=== PATIENT | male | born 1975 | race Caucasian/White ===

== ENCOUNTER 2017-07-10 17:08 | Emergency (ER) | payer OTHER, SELFPAY ==
[2017-07-10 17:10] VITALS: BP 158/105; PULSE 95; RESP 20; TEMP 36.9; O2SAT 97; BMI 47.6
--- NOTE | 2017-07-10 17:30 | RAD_ITS ---
STUDY: X-RAY CHEST REASON FOR EXAM: Male, 41 years old. Cough. TECHNIQUE: PA and lateral views of the chest. COMPARISON: None. FINDINGS: The lungs are clear and expanded. There is no demonstrated pleural abnormality. Normal size heart. Normal mediastinum and james. Normal visualized pulmonary arteries. Normal visualized aortic arch and descending thoracic aorta. There are diffuse degenerative changes of the visualized thoracic spine. Normal visualized ribs, clavicles, and shoulders. There is no demonstrated abnormality of the visualized soft tissue structures of the upper abdomen. RAD/Chest PA and Lateral IMPRESSION: No acute cardiopulmonary process. Electronically Signed: Radha Chavez MD at 19:03 EST Tel , Service support ,
[2017-07-10] MEDS: Ipratropium/Albuterol Sulfate 3 ML AMPUL.NEB INHALATION (17:41)
[2017-07-10 17:42] VITALS: PULSE 98; RESP 20
--- NOTE | 2017-07-10 17:42 | EKG12_ITS ---
Test Reason : CP Blood Pressure : / mmHG Vent. Rate : 094 BPM Atrial Rate : 094 BPM P-R Int : 154 ms QRS Dur : 078 ms QT Int : 320 ms P-R-T Axes : 058 069 044 degrees QTc Int : 400 ms Normal sinus rhythm Normal ECG Confirmed by YANG CHOI, ALVARADO ([id number]), editor producer JOHN YANG ([id number]) on 07/13/2017 3:55:38 PM Referred By: NORMAN Confirmed By:ALVARADO SORIA MD
[2017-07-10 18:02] VITALS: O2SAT 97
--- NOTE | 2017-07-10 18:16 | ED.VISSUMM ---
- ER Visit Summary Date of Service: 07/10/17 Chief Complaint: Cough History of Present Illness: The patient is a 41 M who has had a cough. He has had this cough for 7 weeks. He states is not getting any better. The cough is not productive. He states that his lungs are burning. He has been on Proventil and Flovent at home. He has been on amoxicillin as well as Tessalon Perles. He is not getting any better. At one point he did have influenza but is now better from that perspective. He has not had a fever. No history of any lung problems. Physical Examination: Vital signs reviewed. HEENT exam unremarkable. Heart is regular rate and rhythm without murmurs. Lungs are clear to auscultation. Abdomen is soft and nontender. Extremities reveal no edema. Skin exam normal. Neurologic exam normal. Test Results: Chest x-ray negative Emergency Department Course and Treatment: Patient was given 1 DuoNeb treatment and feels somewhat improved Treatment Plan: I will discharge him home with a Medrol Dosepak to see if this will help with his cough. He will need to follow-up with his PCP for further testing if it persists Disposition: Discharge Impression: Cough This note was generated with [employer] dictation software. It may contain incorrect words, spelling, and punctuation that were not noted in review of the chart prior to signing ED Disposition - Plan for ED Patient: Chief Complaint: Cough Referrals: Stefano Thapa MD [Primary Care Provider] -
--- NOTE | 2017-07-10 19:09 | ED.DEP ---
ED Disposition - Plan for ED Patient: Disposition: Home or Assisted Living Chief Complaint: Cough Instructions: ED Upper Resp Infec No Abx Tx Prescriptions: MethylPREDNISolone DosePak [Medrol DosePak] 4 mg PO UD #1 box Referrals: Stefano Thapa MD [Primary Care Provider] -
[2017-07-10 19:22] VITALS: BP 155/98; PULSE 89; RESP 18; TEMP 36.2; O2SAT 97
== END 2017-07-10 19:23 | disposition home or self-care (01) ==
PROVIDERS: Emergency Provider Emergency Medicine; Family Provider Family Medicine; PCP Family Medicine
DX: R05 Cough (principal); E11.9 Type 2 diabetes mellitus without complications; I10 Essential (primary) hypertension; Z79.84 Long term (current) use of oral hypoglycemic drugs; Z79.899 Other long term (current) drug therapy
CPT/HCPCS: 71046; 93005; 94640; 99282

== ENCOUNTER → 2020-10-28 10:03 | Outpatient (CLI) | payer OTHER, SELFPAY ==
--- NOTE | 2020-10-28 10:05 | RAD_ITS ---
STUDY: X-RAY CHEST REASON FOR EXAM: Male, 45 years old. COUGH TECHNIQUE: 2 views COMPARISON: 07/10/2017. FINDINGS: The lungs are clear and expanded. There is no demonstrated pleural abnormality. Normal size heart. Normal mediastinum and james. Normal visualized pulmonary arteries. Normal visualized aortic arch and descending thoracic aorta. Normal visualized thoracic spine. Normal visualized ribs, clavicles, and shoulders. There is no demonstrated abnormality of the visualized soft tissue structures of the upper abdomen. RAD/Chest PA and Lateral IMPRESSION: Normal x-ray examination of the chest unchanged since July 2017. Electronically Signed: Kai Nixon, at 14:29 EDT Tel , Service support ,
== END ==
PROVIDERS: PCP Family Medicine; Referring Provider Internal Medicine Pulmonary Disease; Visit Provider Internal Medicine Pulmonary Disease
DX: R05 Cough (principal)
CPT/HCPCS: 71046

== ENCOUNTER 2021-12-02 16:42 | Emergency (ER) | payer OTHER, SELFPAY ==
[2021-12-02 16:43] VITALS: BP 138/101; PULSE 116; RESP 19; TEMP 36.6; O2SAT 97; BMI 48.4
--- NOTE | 2021-12-02 17:28 | ED.VIS.LOWEX ---
HPI History of Present Illness HPI Narrative: Patient presents with pain in his left calf that has been getting worse for the past week. Patient states it began rather suddenly. Patient states it has been constant. Patient describes the pain as a cramping. Patient states nothing makes it better and nothing makes it worse. Patient denies any trauma or injury. Patient does admit to some tingling in his toes. Patient denies any weakness. Patient states he went to an urgent care and was told to come to the emergency department for possible DVT. Chief Complaint: Lower Extremity Injury Informant: patient Onset/Context/Timing Onset: Weeks (1) Context: Sudden Onset Timing: Continuous Quality of Pain: - (Cramping) Location: Left calf Worsened by: Nothing Relieved by: Nothing Associated Symptoms Associated Symptoms: Positive for Parasthesia; Negative for Weakness or Loss of Funtion [facility] Medical History (Updated 12/02/21 @ 19:[address] Brian Mtz, DO) Diabetes mellitus Hypertension Medical History no medical history Home Medications aripiprazole 5 mg tablet 5 mg PO DAILY 07/10/17 [History Last Taken Unknown] cholecalciferol (vitamin D3) 250 mcg (10,000 unit) tablet 10,000 unit PO DAILY 07/10/17 [History Last Taken Unknown] clonazepam 1 mg tablet 1 mg PO QHS 07/10/17 [History Last Taken Unknown] melatonin ER 10 mg-pyridoxine HCl (B6) 10 mg tab, immed-extend release 1 ea PO DAILY 07/10/17 [History Last Taken Unknown] metformin 500 mg 24 hr tablet,extended release 500 mg PO DAILY 07/10/17 [History Last Taken Unknown] trazodone 150 mg tablet 150 mg PO QHS 07/10/17 [History Last Taken Unknown] venlafaxine 75 mg capsule,extended release 24 hr (Effexor XR) 75 mg PO DAILY 07/10/17 [History Last Taken Unknown] losartan 25 mg tablet 25 mg PO DAILY 10/13/21 [History Last Taken Unknown] meloxicam 15 mg tablet 15 mg PO PRN PRN KNEE PAIN 10/13/21 [History Last Taken Unknown] apixaban 5 mg tablet (Eliquis) 5 mg PO BID #74 tabs 12/02/21 [Rx Last Taken Unknown] venlafaxine 150 mg capsule,extended release 24 hr 300 mg PO DAILY 12/02/21 [History Last Taken Unknown] Allergy/AdvReac Type Severity Reaction Status Date / Time No Known Allergies Allergy Verified 12/02/21 16:46 Family History no significant family his Surgical History no surgical history no surgical history Social History Smoking Status: Never smoker ROS ROS ED Constitutional Constitutional ED: Denies chills or fever(s) Eyes Eyes: Denies blurry vision or change in vision ENT ENT ED: Denies rhinorrhea or sore throat Cardiovascular Cardiovascular: Denies chest pain or palpitations Respiratory/Chest Respiratory/Chest: Denies cough or dyspnea Gastrointestinal Gastrointestinal: Denies nausea or vomiting Genitourinary Genitourinary ED: Denies dysuria or hematuria Musculoskeletal Musculoskeletal: Denies back pain or neck pain Integumentary Denies abscess or rash Neurologic Neurologic: Denies headache(s) or weakness Allergic/Immunologic Allergic/Immunologic ED: Denies mouth swelling or urticaria EXAM Physical Exam Const Vital Signs: 12/02/21 16:43 12/02/21 19:17 Temperature 97.9 F Temperature Source Temporal Pulse Rate 116 H 96 Respiratory Rate 19 H 18 Blood Pressure 138/101 H 153/98 H Blood Pressure Mean 113 Pulse Ox 97 94 Oxygen Delivery Method Room Air Positive well nourished, well developed and obese General Appearance ED: well developed and NAD Nutritional Appearance: obese HEENT Reports moist mucous membranes Neck full ROM and supple Extremity Extremity Narrative: There is tenderness to palpation over the left calf. There is no edema. There is no ecchymosis. There is no bony crepitance or step-off. There is no deformity. There is good range of motion of the left knee and left ankle. There is no pain with dorsiflexion of the ankle. Pedal pulses are equal bilaterally. Sensation was intact to light touch in all digits. Capillary refill was less than 2 seconds in all digits. Neuro oriented x3, CN's II-XII intact bilaterally, moves all extremities and no sensory deficits noted Sensorium / Orientation: alert Motor Exam: strength 5/5 throughout Psych mental status grossly normal MDM MDM MDM Narrative Medical decision making narrative: Venous duplex of the left lower extremity was obtained. There is a DVT noted in the superficial femoral vein, popliteal vein, posterior tibial vein, and peroneal vein. Patient was given a first dose of Eliquis here. Patient was advised of his findings. Patient was given a prescription for Eliquis. Patient was instructed to follow-up with his primary care physician in 3 to 5 days. Patient understood and was agreeable with the plan. All questions were answered. Radiography Diagnostic Testing: Clinical Impression(s) from Imaging Studies Venous Duplex 12/02/21 17:30 IMPRESSION: Deep venous thrombosis of the left leg. Electronically Signed: Qasim Wells MD at 20:12 EDT Reading Location ID and State: [facility] [place] , Service support , ADDENDUM: 12/02/212055 IMPRESSION: Deep venous thrombosis of the left leg. N.B. : Josue Hayes RN, confirmed on 12/02/2021 20:49:57 (ET) that the healthcare facility has received the radiology report. Electronically Signed: Qasim Wells MD at 20:12 EDT Reading Location ID and State: [facility] [place] , Service support , Discharge Plan Triage Chief Complaint: Lower Extremity Injury ED Provider: Brian Mtz Dx/Rx/DC Orders Clinical Impression: Acute deep vein thrombosis (DVT) of left lower extremity Instructions: ED Deep Vein Thrombosis (DVT) Prescriptions: New Eliquis 5 mg tablet 5 mg PO BID Qty: 74 0RF Rx Instructions: 10 mg twice a day for the first week. Then 5 mg twice a day. No Action losartan 25 mg tablet 25 mg PO DAILY Label Comments: TAKE 1 TABLET BY MOUTH ONCE DAILY meloxicam 15 mg tablet 15 mg PO PRN PRN (Reason: KNEE PAIN) Label Comments: TAKE 1 TABLET BY MOUTH ONCE DAILY WITH FOOD venlafaxine [Effexor XR] 75 MG capsule,extended release 24hr 75 mg PO DAILY aripiprazole 5 MG tablet 5 mg PO DAILY metformin 500 MG tablet,ER aditya.retention 24 hr 500 mg PO DAILY cholecalciferol (vitamin D3) 10,000 UNIT tablet 10,000 unit PO DAILY clonazepam 1 MG tablet 1 mg PO QHS trazodone 150 MG tablet 150 mg PO QHS melatonin-pyridoxine HCl (B6) 1 EACH tablet, IR and ER, biphasic 1 ea PO DAILY venlafaxine 150 mg Capsule,Extended Release 24hr 300 mg PO DAILY Primary Care Provider: Stefano Thapa Referrals: Stefano Thapa MD [Primary Care Provider] - 3-5 Days Disposition Disposition: Home, Self Care Discharge Date/Time: 12/02/21 19:19
--- NOTE | 2021-12-02 17:30 | US_ITS ---
ACR Level 3 findings have been noted. An addendum which confirms receipt of the report will follow. STUDY: VENOUS DOPPLER ULTRASOUND - LEFT LOWER EXTREMITY REASON FOR EXAM: Male, 46 years old. -- PAIN TECHNIQUE: Ultrasound evaluation of the deep vein system to include spears-scale imaging and compression was performed. Spears-scale imaging and Doppler sonographic evaluation, including duplex spectral analysis and qualitative color flow sonography, was performed. COMPARISON: None. FINDINGS: Common Femoral Vein: Normal compression, spontaneity and augmentation. Normal color Doppler. Common Femoral Vein/Greater Saphenous Junction: Normal compression, spontaneity and augmentation. Normal color Doppler. Deep Femoral Vein: Normal compression, spontaneity and augmentation. Normal color Doppler. Femoral Proximal: Normal compression, spontaneity and augmentation. Normal color Doppler. Femoral Middle: Incomplete compression. Echogenic material within the lumen. Diminished flow. Femoral Distal: Incomplete compression. Echogenic material within the lumen. Diminished flow. Popliteal Vein: Incomplete compression. Echogenic material within the lumen. Diminished flow. Posterior Tibial Vein: Incomplete compression. Echogenic material within the lumen. Diminished flow. Peroneal Vein: Incomplete compression. Echogenic material within the lumen. Diminished flow. The above findings are consistent with an acute thrombosis. US/Venous Duplex Imag/Limited/Uni IMPRESSION: Deep venous thrombosis of the left leg. Electronically Signed: Qasim Wells MD at 20:12 EDT ,
[2021-12-02] MEDS: APIXABAN 5 MG TABLET 10 MG PO (18:39)
[2021-12-02 19:17] VITALS: BP 153/98; PULSE 96; RESP 18; O2SAT 94
== END 2021-12-02 19:19 | disposition home or self-care (01) ==
PROVIDERS: Emergency Provider Emergency Medicine; PCP Family Medicine; Visit Provider Emergency Medicine
DX: I82.402 Acute embolism and thrombosis of unspecified deep veins of left lower extremity (principal); Z68.42 Body mass index [BMI] 45.0-49.9, adult; E11.9 Type 2 diabetes mellitus without complications; I10 Essential (primary) hypertension; Z79.899 Other long term (current) drug therapy; Z79.84 Long term (current) use of oral hypoglycemic drugs; E66.9 Obesity, unspecified
CPT/HCPCS: 93971; 99283

== ENCOUNTER 2021-12-12 20:33 | Emergency (ER) | payer OTHER, SELFPAY ==
[2021-12-12 20:34] VITALS: BP 133/106; PULSE 98; RESP 16; TEMP 36.4; O2SAT 99; BMI 49.0
[2021-12-12 20:44] VITALS: BP 167/96
--- NOTE | 2021-12-12 20:57 | US_ITS ---
INDICATION: LT KNOWN DVT - LAST WEEK, PT ON BLOOD THINNERS - PT THINKS DVT HAS GOTTEN WORSE EXAMINATION: Ultrasound US Venous Duplex LE Unilat / Limited TECHNIQUE: Spears scale, pulse wave, and color flow Doppler imaging was performed of the lower extremity venous system. The left greater saphenous, common femoral, femoral, and popliteal veins were interrogated. Left posterior tibial and peroneal veins also interrogated. Right common femoral vein assessed for comparison. COMPARISON: 12/02/2021 venous ultrasound. FINDINGS: Persistent incompressibility and blunted waveforms of the mid and distal superficial femoral vein and proximal posterior tibial and peroneal veins with associated low-level internal echoes in the posterior tibial and peroneal veins consistent with persistent deep venous thrombosis. The common femoral and proximal superficial femoral and popliteal veins are within normal limits. Contralateral right common femoral vein is normal. US/Venous Duplex Imag/Limited/Uni IMPRESSION: Persistent deep venous thrombosis as described 12/02/2021. No new venous thrombosis. Electronically Signed: Francisco Dyson DO at 22:07 EDT ,
--- NOTE | 2021-12-12 20:57 | ED.VIS.LOWEX ---
HPI History of Present Illness Chief Complaint: Lower Extremity Injury Informant: patient Narrative Narrative: 46-year-old male states that on 02 December 2021 he was diagnosed with DVT of the left leg and started on Eliquis. He notes he has not missed any doses. He states that he has now developed burning on the medial aspect of his thigh and the lateral aspect of his leg. He is concerned that his blood clots are worsening. He is not sure if his swelling is worse on that side. [facility] Medical History Diabetes mellitus Hypertension Home Medications clonazepam 1 mg tablet 1 mg PO QHS 07/10/17 [History Last Taken Unknown] metformin 500 mg 24 hr tablet,extended release 500 mg PO DAILY 07/10/17 [History Last Taken Unknown] venlafaxine 75 mg capsule,extended release 24 hr (Effexor XR) 75 mg PO DAILY 07/10/17 [History Last Taken Unknown] losartan 25 mg tablet 25 mg PO DAILY 10/13/21 [History Last Taken Unknown] meloxicam 15 mg tablet 15 mg PO PRN PRN KNEE PAIN 10/13/21 [History Last Taken Unknown] apixaban 5 mg tablet (Eliquis) 5 mg PO BID #74 tabs 12/02/21 [Rx Last Taken Unknown] venlafaxine 150 mg capsule,extended release 24 hr 300 mg PO DAILY 12/02/21 [History Last Taken Unknown] aripiprazole 15 mg tablet 15 mg PO DAILY 12/11/21 [History Last Taken Unknown] calcium carbonate 80 mg-magnesium carbonate 115 mg tablet 1 tab PO DAILY 12/11/21 [History Last Taken Unknown] cholecalciferol (vitamin D3) 125 mcg (5,000 unit) capsule 125 mcg PO DAILY 12/11/21 [History Last Taken Unknown] melatonin 5 mg capsule 5 mg PO DAILY 12/11/21 [History Last Taken Unknown] trazodone 100 mg tablet 100 mg PO DAILY 12/11/21 [History Last Taken Unknown] Allergy/AdvReac Type Severity Reaction Status Date / Time No Known Allergies Allergy Verified 12/12/21 20:34 Social History (Updated 12/12/21 @ 20:[address] Sae Vanegas DO) Smoking Status: Never smoker substance use type: does not use ROS ROS ED Constitutional Constitutional ED: Denies chills or weight loss Eyes Eyes: Denies change in vision or diplopia ENT ENT ED: Denies ear pain, rhinorrhea or sore throat Cardiovascular Cardiovascular: Denies chest pain, orthopnea, palpitations or racing heartbeat Respiratory/Chest Respiratory/Chest: Denies cough, dyspnea or orthopnea Gastrointestinal Gastrointestinal: Denies abdominal pain, diarrhea, nausea or vomiting Genitourinary Genitourinary ED: Denies dysuria, hematuria or urinary frequency Musculoskeletal Musculoskeletal: Reports other Details: left leg pain ; Denies arthralgias or myalgias Integumentary Denies abscess or rash Neurologic Neurologic: Denies headache(s) or weakness Psychiatric Psychiatric: Denies anxiety, depression, suicidal ideation or suicidal thoughts Endocrine Endocrinology: Denies polydipsia, polyphagia or polyuria Allergic/Immunologic Allergic/Immunologic ED: Denies mouth swelling, tongue swelling or urticaria EXAM Physical Exam Const Vital Signs: 12/12/21 20:34 12/12/21 20:44 Temperature 97.6 F L Temperature Source Temporal Pulse Rate 98 Respiratory Rate 16 Blood Pressure 133/106 H 167/96 H Blood Pressure Mean 115 119 Pulse Ox 99 Oxygen Delivery Method Room Air Positive well nourished and well developed General Appearance ED: well developed HEENT Reports normocephalic, head/scalp atraumatic and moist mucous membranes Eyes PERRL and EOMs intact bilaterally Neck no lymphadenopathy, supple and no JVD Resp normal respiratory effort and clear to auscultation bilaterally Cardio regular rate, regular rhythm and no murmurs GI normal to inspection, nondistended, normoactive bowel sounds and non-tender Palpation: soft Back/Spine no CVA tenderness and normal ROM Extremity Extremity Narrative: I do not appreciate significant tenderness to palpation or swelling between the 2 sides. I do not palpate any cords or see any superficial thrombophlebitis. Skin appears of normal color with good capillary refill. General Extremety ED: Negative for edema General Extremity: Negative for edema Neuro oriented x3 and CN's II-XII intact bilaterally Sensorium / Orientation: alert Motor Exam: strength 5/5 throughout Psych mental status grossly normal Mood & Affect: Negative for depressed or tearful Skin no rashes or lesions noted and no wounds MDM MDM MDM Narrative Medical decision making narrative: Duplex ultrasound was obtained and actually show significant improvement as compared to the duplex from 02 December. Patient does not require any advanced pain medicine at home. He has an appointment on Wednesday with his primary care provider. Patient to return if worsening Discharge Plan Triage Chief Complaint: Lower Extremity Injury ED Provider: Sae Vanegas Dx/Rx/DC Orders Clinical Impression: Acute pain of left lower extremity, Acute deep vein thrombosis (DVT) of left lower extremity, Anticoagulated Instructions: DVT Complications Prescriptions: No Action aripiprazole 15 mg tablet 15 mg PO DAILY Label Comments: TAKE 1 TABLET BY MOUTH ONCE DAILY cholecalciferol (vitamin D3) 125 mcg (5,000 unit) capsule 125 mcg PO DAILY calcium carb-magnesium carb 80-115 mg tablet 1 tab PO DAILY trazodone 100 mg tablet 100 mg PO DAILY Label Comments: TAKE 1 TABLET BY MOUTH ONCE DAILY AT BEDTIME melatonin 5 mg capsule 5 mg PO DAILY losartan 25 mg tablet 25 mg PO DAILY Label Comments: TAKE 1 TABLET BY MOUTH ONCE DAILY meloxicam 15 mg tablet 15 mg PO PRN PRN (Reason: KNEE PAIN) Label Comments: TAKE 1 TABLET BY MOUTH ONCE DAILY WITH FOOD venlafaxine [Effexor XR] 75 MG capsule,extended release 24hr 75 mg PO DAILY metformin 500 MG tablet,ER aditya.retention 24 hr 500 mg PO DAILY clonazepam 1 MG tablet 1 mg PO QHS venlafaxine 150 mg Capsule,Extended Release 24hr 300 mg PO DAILY Eliquis 5 mg tablet 5 mg PO BID Qty: 74 0RF Rx Instructions: 10 mg twice a day for the first week. Then 5 mg twice a day. Primary Care Provider: Stefano Thapa Referrals: Stefano Thapa MD [Primary Care Provider] - 1-2 Weeks Disposition Disposition: Home, Self Care
[2021-12-12] MEDS: oxyCODONE 5 MG Tablet 10 MG PO (21:42)
[2021-12-12 21:46] VITALS: RESP 18
== END 2021-12-12 21:58 | disposition home or self-care (01) ==
PROVIDERS: Emergency Provider Emergency Medicine; PCP Family Medicine; Visit Provider Emergency Medicine
DX: I82.402 Acute embolism and thrombosis of unspecified deep veins of left lower extremity (principal); E11.9 Type 2 diabetes mellitus without complications; I10 Essential (primary) hypertension; Z79.899 Other long term (current) drug therapy; Z86.718 Personal history of other venous thrombosis and embolism; Z79.01 Long term (current) use of anticoagulants; Z79.84 Long term (current) use of oral hypoglycemic drugs
CPT/HCPCS: 93971; 99283

== ENCOUNTER → 2022-05-07 | Outpatient (CLI) | payer SELFPAY, OTHER ==
--- NOTE | 2022-05-07 07:51 | VDLE_ITS ---
Reason For Study: DVT Procedure LEFT This is a venous duplex using B-mode, color GSV is normal. flow and spectral Doppler. CFV is compressible, spontaneous, phasic, Exam performed in department. competent, and demonstrates normal A preliminary report was called and/or faxed augmentation. to [facility]. FV is compressible, spontaneous, phasic, competent and demonstrates normal augmentation. POP V is compressible, spontaneous, phasic, competent and demonstrates normal augmentation. T/P Trunk is compressible. PTV is compressible. LT PerV is compressible. VL/Venous Duplex US, Unilateral Interpretation Summary There is no evidence of left lower extremity deep vein thrombosis. Left great s aphenous vein appears patent and compressible segmentally. Ordering Physician: Stefano Thapa Referring Physician: Stefano Thapa Performed By: Latonya Dykes RVT
== END | disposition home or self-care (01) ==
PROVIDERS: PCP Family Medicine; Referring Provider Family Medicine; Visit Provider Family Medicine
DX: I82.4Z2 Acute embolism and thrombosis of unspecified deep veins of left distal lower extremity (principal)
CPT/HCPCS: 93971

== ENCOUNTER → 2023-01-25 | Outpatient (CLI) | payer OTHER, SELFPAY ==
--- NOTE | 2023-01-25 07:58 | RAD_ITS ---
STUDY: X-RAY - ESOPHAGUS (BARIUM SWALLOW) WITH FLUOROSCOPY REASON FOR EXAM: Male, 47 years old. GLOBUS SENSATION TECHNIQUE: 16 view(s) of the esophagus were obtained following swallowing of barium. FLUOROSCOPY TIME (if supplied): (36 seconds) minutes/seconds. 61.4 mGy COMPARISON: None. FINDINGS: There is no demonstrated esophageal foreign body. There is no demonstrated stricture or mucosal abnormality. Normal gastroesophageal junction, without a demonstrated hiatal hernia. The patient ingested a 12 mm tablet of barium without any difficulty. Normal visualized aortic arch and descending thoracic aorta. Normal visualized pulmonary parenchyma. Normal visualized osseous structures of the thorax. RAD/Esophagus Dual Contrast IMPRESSION: Normal plain film x-ray examination (barium swallow) of the esophagus. Electronically Signed: Conrado Bailon MD at 11:02 EDT ,
== END | disposition home or self-care (01) ==
LOC: RAD 07:25
PROVIDERS: PCP Family Medicine; Referring Provider Family Medicine; Visit Provider Family Medicine
DX: R09.89 Other specified symptoms and signs involving the circulatory and respiratory systems (principal)
CPT/HCPCS: 74221

== ENCOUNTER 2023-08-12 11:20 | Emergency (ER) | payer OTHER, SELFPAY ==
[2023-08-12 11:20] VITALS: BP 134/84; PULSE 92; RESP 14; TEMP 36.3; O2SAT 95; BMI 49.8
--- NOTE | 2023-08-12 11:27 | ED.RN ---
did not do a complete nih in triage
--- NOTE | 2023-08-12 11:45 | EDS_ITS ---
HPI History of Present Illness Chief Complaint: Headache Informant: patient Onset/Context/Timing Onset: Today Narrative Narrative: Patient presents with headache on the right side between his eyes and his ear. He states pain is mild to moderate and started this morning. He reportedly called his PCPs office who wanted him to come in for a CT scan. He denies any recent head injury. Patient states he did have a little bit of a runny nose yesterday but that is resolved today. No fever or chills. He reportedly had a biswas spot moving around in his right eye yesterday that is resolved today. Patient has Eliquis listed on his medication list, however states he no longer takes this. He was on this for a history of DVT in the past. [facility] Medical History Arthritis Carpal tunnel syndrome Diabetes mellitus Headache Hemorrhoids History of back problems Hormone deficiency Hypertension Irritable bowel syndrome (IBS) MDD (major depressive disorder) Migraines Vitamin deficiency Home Medications metformin 500 mg 24 hr tablet,extended release (gastric retention) 500 mg PO DAILY 07/10/17 [History Last Taken Unknown] losartan 25 mg tablet 25 mg PO DAILY 10/13/21 [History Last Taken Unknown] apixaban 5 mg tablet (Eliquis) 5 mg PO BID #74 tabs 12/02/21 [Rx Last Taken Unknown] calcium carbonate 80 mg-magnesium carbonate 115 mg tablet 1 tab PO DAILY 12/11/21 [History Last Taken Unknown] cholecalciferol (vitamin D3) 125 mcg (5,000 unit) capsule 125 mcg PO DAILY 12/11/21 [History Last Taken Unknown] melatonin 5 mg capsule 5 mg PO DAILY 12/11/21 [History Last Taken Unknown] benztropine 0.5 mg tablet 0.5 mg PO .COMPLEX #60 tabs 12/23/21 [Rx Last Taken Unknown] meclizine 25 mg tablet 25 mg PO TID PRN dizziness #90 tabs 12/23/21 [Rx Last Taken Unknown] aripiprazole 10 mg tablet 10 mg PO DAILY 90 days #90 tabs 05/25/23 [Rx Last Taken Unknown] trazodone 100 mg tablet 100 mg PO DAILY #90 tabs 05/25/23 [Rx Last Taken Unknown] trihexyphenidyl 2 mg tablet 1 - 2 mg (0.5 - 1 x 2 mg) PO .prn tremor #30 tabs 05/25/23 [Rx Last Taken Unknown] clonazepam 1 mg tablet 1 mg PO QHS #30 tabs 06/16/23 [Rx Last Taken Unknown] venlafaxine 150 mg capsule,extended release 24 hr 300 mg (2 x 150 mg) PO DAILY 90 days #180 caps 06/16/23 [Rx Last Taken Unknown] venlafaxine 75 mg capsule,extended release 24 hr (Effexor XR) 75 mg PO DAILY 90 days #90 caps 06/17/23 [Rx Last Taken Unknown] Allergy/AdvReac Type Severity Reaction Status Date / Time No Known Allergies Allergy Verified 08/12/23 11:21 Family History Grandfather Anxiety Diabetes Mother Hypertension Surgical History History of carpal tunnel surgery Social History Smoking Status: Never smoker Tobacco: How many years used: 5 second hand exposure: No details: occasionally substance use type: does not use sherman/presybeterian: Church ROS ROS ED Constitutional Constitutional ED: Denies chills or fever(s) Eyes Eyes: Denies discharge from eye(s) ENT ENT ED: Denies discharge from eye(s), rhinorrhea or sore throat Cardiovascular Cardiovascular: Denies chest pain or palpitations Respiratory/Chest Respiratory/Chest: Denies cough or dyspnea Gastrointestinal Gastrointestinal: Denies abdominal pain, nausea or vomiting Genitourinary Genitourinary ED: Denies dysuria Musculoskeletal Musculoskeletal: Denies back pain or extremity pain Integumentary Denies Abrasions or rash Neurologic Neurologic: Reports headache(s); Denies weakness Psychiatric Psychiatric: Denies anxiety or depression Allergic/Immunologic Allergic/Immunologic ED: Denies lip swelling or urticaria EXAM Physical Exam Const Vital Signs: 08/12/23 11:20 08/12/23 13:20 Temperature 97.3 F L Temperature Source Temporal Pulse Rate 92 78 Respiratory Rate 14 16 Blood Pressure 134/84 H 127/70 H Blood Pressure Mean 100 89 Pulse Ox 95 97 Oxygen Delivery Method Room Air Room Air Positive well nourished, well developed and obese General Appearance ED: well developed Nutritional Appearance: obese HEENT Reports moist mucous membranes Eyes EOMs intact bilaterally Neck no meningeal signs Resp normal respiratory effort and clear to auscultation bilaterally Cardio regular rate and regular rhythm GI non-tender Palpation: soft Extremity normal to inspection General Extremety ED: Yes edema General Extremity: edema Neuro oriented x3 and no sensory deficits noted Sensorium / Orientation: awake and alert Motor Exam: strength 5/5 throughout Psych mental status grossly normal Skin Lesions: no lesions Rashes: no rashes MDM MDM MDM Narrative Medical decision making narrative: IV line established. Patient given IV fluids, Toradol, Reglan, and Benadryl. CT scan of the head will be obtained to evaluate for any acute intracranial injury. Radiography Diagnostic Testing: Clinical Impression(s) from Imaging Studies Brain CT 08/12/23 12:10 IMPRESSION: Focal atrophy in the region of the sylvian fissures bilaterally suggestive of old ischemic insult. Electronically Signed: Conrado Bailon MD at 12:22 EDT , Treatment and Re-Evaluation Narrative: CT scan of the head reveals focal atrophy in the regions of the sylvian fissures bilaterally suggestive of old ischemic insult. No acute findings noted. On repeat evaluation patient resting comfortably. He states he feels very sleepy but his headache is improved. Test results were discussed with patient and at bedside. He will be discharged to home and will follow up with his primary care physician. Discharge Plan Triage Chief Complaint: Headache ED Provider: Natasha Montes Dx/Rx/DC Orders Clinical Impression: Headache Instructions: ED Headache Unspecified Prescriptions: No Action cholecalciferol (vitamin D3) 125 mcg (5,000 unit) capsule 125 mcg PO DAILY calcium carb-magnesium carb 80-115 mg tablet 1 tab PO DAILY melatonin 5 mg capsule 5 mg PO DAILY benztropine 0.5 mg tablet 0.5 mg PO .COMPLEX Qty: 60 4RF Rx Instructions: 1 tablet orally daily for one week then 1 tablet BID thereafter meclizine 25 mg tablet 25 mg PO TID PRN (Reason: dizziness) Qty: 90 4RF losartan 25 mg tablet 25 mg PO DAILY Patient Comments: TAKE 1 TABLET BY MOUTH ONCE DAILY venlafaxine 150 mg capsule,extended release 24hr 300 mg PO DAILY 90 Days Qty: 180 1RF clonazepam 1 mg tablet 1 mg PO QHS Qty: 30 2RF metformin 500 MG tablet,ER aditya.retention 24 hr 500 mg PO DAILY Eliquis 5 mg tablet 5 mg PO BID Qty: 74 0RF Rx Instructions: 10 mg twice a day for the first week. Then 5 mg twice a day. aripiprazole 10 mg tablet 10 mg PO DAILY 90 Days Qty: 90 1RF trazodone 100 mg tablet 100 mg PO DAILY Qty: 90 1RF trihexyphenidyl 2 mg tablet 1 - 2 mg PO .prn Qty: 30 2RF venlafaxine [Effexor XR] 75 mg capsule,extended release 24hr 75 mg PO DAILY 90 Days Qty: 90 1RF Primary Care Provider: Stefano Thapa Referrals: Stefano Thapa MD [Primary Care Provider] - As Needed Disposition Disposition: Home, Self Care
[2023-08-12] MEDS: DiphenhydrAMINE 50 MG/ML Syringe 25 MG IV (11:53)
[2023-08-12] MEDS: Metoclopramide 10 MG/2 ML Vial 5 MG IV (11:53)
[2023-08-12] MEDS: 0.9% Normal Saline (500mL Bag) 500 ML 1000 ML IV (11:54)
[2023-08-12] MEDS: Ketorolac 15 MG/ML Vial IV (11:54)
--- NOTE | 2023-08-12 12:10 | CT_ITS ---
STUDY: CT BRAIN WITHOUT CONTRAST REASON FOR EXAM: Male, 47 years old. Headache RADIATION DOSAGE (If Supplied By Facility): CTDIvol = ( 44.99 ) mGy, DLP = ( 880.47 ) mGycm TECHNIQUE: Transaxial CT imaging of the brain was performed without administration of intravenous contrast material. Individualized dose optimization techniques were used for this CT. COMPARISON: No relevant priors. FINDINGS: Normal soft tissue structures. Normal calvarium. Normal size ventricles and extra-axial spaces for the patient''s age. Focal atrophy in the region of the sylvian fissures bilaterally suggestive of possible old ischemic insult. Normal basal ganglia and thalami. Normal brainstem. Normal cerebellum. There is no intracranial hemorrhage. There are no findings of an acute ischemic infarction. Minimal mucosal thickening along the lateral inferior aspect of the left maxillary sinus. CT/Brain/Head without Contrast IMPRESSION: Focal atrophy in the region of the sylvian fissures bilaterally suggestive of old ischemic insult. Electronically Signed: Conrado Bailon MD at 12:22 EDT ,
[2023-08-12 13:20] VITALS: BP 127/70; PULSE 78; RESP 16; O2SAT 97
[2023-08-12 13:40] VITALS: BP 121/60; PULSE 68; RESP 16; TEMP 36.3; O2SAT 99
== END 2023-08-12 13:40 | disposition home or self-care (01) ==
PROVIDERS: Emergency Provider Emergency Medicine; PCP Family Medicine; Visit Provider Emergency Medicine
DX: R51.9 Headache, unspecified (principal); E11.9 Type 2 diabetes mellitus without complications; I10 Essential (primary) hypertension; Z79.84 Long term (current) use of oral hypoglycemic drugs; Z79.899 Other long term (current) drug therapy; F32.9 Major depressive disorder, single episode, unspecified
CPT/HCPCS: 70450; 96361; 96374; 96375; 99283; J7040

== ENCOUNTER 2024-06-29 13:02 | Emergency (ER) | payer OTHER, SELFPAY ==
[2024-06-29 13:03] VITALS: BP 133/89; PULSE 115; RESP 20; TEMP 36.4; O2SAT 95; BMI 51.9
--- NOTE | 2024-06-29 15:29 | VDLE_ITS ---
Reason For Study Reason For Study: Left leg swelling RIGHT LEFT CFV is compressible, spontaneous, phasic, competent GSV is normal. and demonstrates normal augmentation. CFV is compressible, spontaneous, phasic, competent, Procedure and demonstrates normal augmentation. This is a venous duplex using B-mode, color flow and FV is compressible, spontaneous, phasic, competent spectral Doppler. and demonstrates normal augmentation. Exam performed in department. POP V is compressible, spontaneous, phasic, competent A preliminary report was called and/or faxed to ED. and demonstrates normal augmentation. T/P Trunk is compressible. PTV is compressible. LT PerV is compressible. FV distal visualized with color only, appears patent. Patient unable to tolerate compression. VL/Venous Duplex US, Unilateral Interpretation Summary Deep veins of the left lower extremity are patent and compressible segmentally. There is no evidence of left lower extremity deep vein thrombosis. The left great saphenous vein appears patent an d compressible segmentally. Ordering Physician: Judi Sorensen Referring Physician: MD Alanis Stefano Performed By: Latonya Dykes RVT
[2024-06-29 16:19] VITALS: BP 136/92; PULSE 118; RESP 20; O2SAT 98
[2024-06-29 16:21] VITALS: O2SAT 98
--- NOTE | 2024-06-29 17:04 | ED.VIS.LOWEX ---
HPI History of Present Illness HPI Narrative: 48-year-old [facility] male history of diabetes and prior DVT. States has had left lower leg primarily knee swelling and discomfort for about 2 weeks. Worse with walking. No fever or chills. No redness. Currently on no blood thinners. Denies any chest pain or shortness of breath currently. Denies any falls or trauma. No prior knee history or surgery. Chief Complaint: Lower Extremity Injury Informant: patient and spouse/S.O. Occured/Mechanism Mechanism/Context: No injury and No blunt trauma Onset/Context/Timing Onset: Weeks Context: Gradual Onset Timing: Continuous Quality of Pain: Dull and Aching Current Severity: Mild Maximum Severity: Mild Narrative Narrative: 48-year-old male complaining of left knee atraumatic pain and swelling. Prior similar symptoms: No Recent Illness/Hospitalization: No PFSH PFSH Medical History Encounter for medication monitoring MDD (major depressive disorder) Hemorrhoids Vitamin deficiency Irritable bowel syndrome (IBS) Hormone deficiency Migraines Headache Carpal tunnel syndrome History of back problems Arthritis Hypertension Diabetes mellitus Home Medications ?Medication ?Instructions ?Recorded ?Last Taken ?Type metformin 500 mg 24 hr 500 mg PO DAILY 07/10/17 Unknown History tablet,extended release (gastric retention) losartan 25 mg tablet 25 mg PO DAILY 10/13/21 Unknown History apixaban 5 mg tablet (Eliquis) 5 mg PO BID #74 tabs 12/02/21 Unknown Rx calcium carbonate 80 mg-magnesium 1 tab PO DAILY 12/11/21 Unknown History carbonate 115 mg tablet cholecalciferol (vitamin D3) 125 125 mcg PO DAILY 12/11/21 Unknown History mcg (5,000 unit) capsule melatonin 5 mg capsule 5 mg PO DAILY 12/11/21 Unknown History benztropine 0.5 mg tablet 0.5 mg PO .COMPLEX #60 tabs 12/23/21 Unknown Rx meclizine 25 mg tablet 25 mg PO TID PRN dizziness #90 tabs 12/23/21 Unknown Rx aripiprazole 15 mg tablet 7.5 mg (1/2 x 15 mg) PO DAILY 90 12/15/23 Unknown Rx days #45 tabs aspirin 81 mg tablet,delayed 81 mg PO DAILY 12/15/23 Unknown History release pioglitazone 30 mg tablet 30 mg PO QDAY 12/15/23 Unknown History venlafaxine 150 mg 300 mg (2 x 150 mg) PO DAILY 90 12/16/23 Unknown Rx capsule,extended release 24 hr days #180 caps venlafaxine 75 mg capsule,extended 75 mg PO DAILY 90 days #90 caps 12/16/23 Unknown Rx release 24 hr (Effexor XR) trihexyphenidyl 2 mg tablet 1 - 2 mg (0.5 - 1 x 2 mg) PO .prn 03/20/24 Unknown Rx tremor #30 tabs clonazepam 1 mg tablet 1 mg PO QHS #30 tabs 06/15/24 Unknown Rx trazodone 100 mg tablet 100 mg PO DAILY #90 tabs 06/15/24 Unknown Rx Allergy/AdvReac Type Severity Reaction Status Date / Time No Known Allergies Allergy Verified 06/15/24 16:21 Family History Grandfather Anxiety Diabetes Mother Hypertension Surgical History History of carpal tunnel surgery Social History Smoking Status: Never smoker Tobacco: How many years used: 5 second hand exposure: No details: occasionally substance use type: does not use sherman/faith: Lutheran ROS ROS ED ROS Narrative Denies recent illness. Constitutional Constitutional ED: Denies chills or fever(s) ENT ENT ED: Denies ear pain Cardiovascular Cardiovascular: Denies chest pain Respiratory/Chest Respiratory/Chest: Denies cough or dyspnea Gastrointestinal Gastrointestinal: Denies abdominal pain Genitourinary Genitourinary ED: Denies dysuria or hematuria Musculoskeletal Musculoskeletal: Denies arthralgias or back pain Integumentary Denies abscess or Abrasions Neurologic Neurologic: Denies headache(s) Psychiatric Psychiatric: Denies anxiety Endocrine Endocrinology: Denies polydipsia Hematologic/Lymphatic Hematologic/Lymphatic: Denies easy bleeding Allergic/Immunologic Allergic/Immunologic ED: Denies mouth swelling, tongue swelling or urticaria EXAM Physical Exam Narrative Exam Narrative: Well-appearing middle-aged Hardik male sitting in a hallway chair due to current volume and acuity. Vital signs are stable afebrile. No distress. H EENT exam pupils round reactive light. Neck nontender no JVD. Lungs clear to auscultation bilaterally. Heart regular rhythm rate about 100 no murmur. Abdomen soft nontender. Moving all 4 extremities. Neurovascularly intact. Specifically left knee has a mild to moderate effusion. He has normal flexion extension. There is varicose veins. No cellulitis. No septic joint. Only minimally tender. Not red, hot or warm. Normal flexion extension of the left knee and left hip and ankle. Calf is nontender without edema or cords. Normal dorsi plantarflexion. When he does flexion-extension his left knee can feel crepitance consistent with arthritis. No inguinal lymphadenopathy. No hip pain. Compared to the right knee it is swollen. Otherwise awake and alert. Const Vital Signs: 06/29/24 13:03 06/29/24 16:19 06/29/24 16:21 Temperature 97.5 F L Temperature Source Temporal Pulse Rate 115 H 118 H Respiratory Rate 20 H 20 H Respiratory Effort Normal Non-Labored Blood Pressure 133/89 H 136/92 H Blood Pressure Mean 103 106 Pulse Ox 95 98 Oxygen Delivery Method Room Air Room Air Room Air Positive well nourished, well developed and obese; Negative for cachectic, contractures or unkempt General Appearance ED: well developed; Negative for unkempt, cachectic or contractures Nutritional Appearance: obese; Negative for cachectic HEENT Reports moist mucous membranes normocephalic and atraumatic Eyes PERRL Neck full ROM and supple Chest Wall inspection of chest normal and palpation of chest normal Resp normal respiratory effort, no retractions and clear to auscultation bilaterally Auscultation: Negative for rales, rhonchi, wheezes or diminished lung sounds Cardio regular rate, regular rhythm, S1 normal heart sound, S2 normal heart sound and no murmurs Rate: Negative for bradycardia or tachycardic Rhythm: Negative for abnormal rhythm Bruits: Negative for other GI non-tender, non-distended and no masses Palpation: soft; Negative for tender, guarding or rebound tenderness present Back/Spine no CVA tenderness Extremity full ROM; Negative for normal to inspection Extremity Narrative: Left knee effusion. Full flexion and extension. Crepitance consistent with arthritis. No hot joint. No cellulitis. No septic joint. No inguinal lymphadenopathy. Normal range of motion. Consistent with arthritis. General Extremety ED: Negative for cyanosis or edema General Extremity: Negative for cyanosis or edema Neuro oriented x3, CN's II-XII intact bilaterally and moves all extremities Sensorium / Orientation: alert, oriented to person, oriented to place and oriented to time; Negative for orientation impaired, confused or lethargic Psych mental status grossly normal Appearance: Negative for unkempt Mood & Affect: Negative for anxious Skin Lesions: no lesions Rashes: no rashes Trauma: Negative for abrasion or laceration MDM MDM MDM Narrative Medical decision making narrative: 48-year-old male with left knee swelling and effusion consistent with osteoarthritis. No fall injury or trauma. No fever or redness. No signs of septic joint. Triage did an ultrasound because he was sent in to rule out DVT. There is no DVT. I think is secondary to arthritis and effusion. Ice. Tylenol and Motrin. He has outpatient follow-up with his primary care physician in July. He does not improving he can be referred to a orthopedic physician for further evaluation and possible joint injection. Patient and are comfortable with the plan. He does not need any blood work. There is no signs of infection. History & Record Review Discussion w/independent historian: Patient and Family Discharge Plan Triage Chief Complaint: Lower Extremity Injury Other Complaint: Shortness of Breath ED Provider: Homero Willis Dx/Rx/DC Orders Clinical Impression: Osteoarthritis, Effusion of knee Instructions: ED Knee Effusion, ED Osteoarthritis Prescriptions: No Action cholecalciferol (vitamin D3) 125 mcg (5,000 unit) capsule 125 mcg PO DAILY calcium carb-magnesium carb 80-115 mg tablet 1 tab PO DAILY melatonin 5 mg capsule 5 mg PO DAILY benztropine 0.5 mg tablet 0.5 mg PO .COMPLEX Qty: 60 4RF Rx Instructions: 1 tablet orally daily for one week then 1 tablet BID thereafter meclizine 25 mg tablet 25 mg PO TID PRN (Reason: dizziness) Qty: 90 4RF losartan 25 mg tablet 25 mg PO DAILY Patient Comments: TAKE 1 TABLET BY MOUTH ONCE DAILY pioglitazone 30 mg tablet 30 mg PO QDAY aspirin 81 mg tablet,delayed release (DR/EC) 81 mg PO DAILY aripiprazole 15 mg tablet 7.5 mg PO DAILY 90 Days Qty: 45 2RF trazodone 100 mg tablet 100 mg PO DAILY Qty: 90 1RF clonazepam 1 mg tablet 1 mg PO QHS Qty: 30 2RF metformin 500 MG tablet,ER aditya.retention 24 hr 500 mg PO DAILY Eliquis 5 mg tablet 5 mg PO BID Qty: 74 0RF Rx Instructions: 10 mg twice a day for the first week. Then 5 mg twice a day. venlafaxine 150 mg capsule,extended release 24hr 300 mg PO DAILY 90 Days Qty: 180 1RF venlafaxine [Effexor XR] 75 mg capsule,extended release 24hr 75 mg PO DAILY 90 Days Qty: 90 1RF trihexyphenidyl 2 mg tablet 1 - 2 mg PO .prn Qty: 30 2RF Primary Care Provider: Stefano Thapa Referrals: Stefano Thapa MD [Primary Care Provider] - Keep Joe appointment Activity Restrictions/Additional Instructions: You do not have a blood clot the ultrasound was negative. Your knee is swollen most likely secondary to fluid collection from arthritis in your knee. Ice your leg to decrease pain and swelling. Elevated to decrease the swelling. Motrin 600 mg 2-3 times a day to decrease pain and swelling and Tylenol for pain. Keep your scheduled appointment with your doctor next month if not improving they can refer you to an orthopedic doctor if is not improving they can get x-rays and consider injecting your knee joint with steroids. Return for redness, fever or feeling a lot worse. Print Language: Sinhala Disposition Disposition: Home, Self Care
== END 2024-06-29 17:24 | disposition home or self-care (01) ==
PROVIDERS: Emergency Provider Emergency Medicine; PCP Family Medicine; Visit Provider Emergency Medicine
DX: M79.89 Other specified soft tissue disorders (principal); E11.9 Type 2 diabetes mellitus without complications; Z86.718 Personal history of other venous thrombosis and embolism; R06.02 Shortness of breath; M25.462 Effusion, left knee; I10 Essential (primary) hypertension; Z79.84 Long term (current) use of oral hypoglycemic drugs; Z79.899 Other long term (current) drug therapy; Z79.01 Long term (current) use of anticoagulants; Z79.82 Long term (current) use of aspirin; F32.9 Major depressive disorder, single episode, unspecified; M17.12 Unilateral primary osteoarthritis, left knee
CPT/HCPCS: 93971; 99283